=== PATIENT | female | born 1995 | race Caucasian/White ===

== ENCOUNTER 2018-10-17 12:28 | Emergency (ER) | payer OTHER ==
[2018-10-17 12:34] VITALS: BP 127/75
--- NOTE | 2018-10-17 12:59 | ER Document Report ---
ED Foreign Body - General Chief Complaint: Foreign Body in Vagina Stated Complaint: FOREIGN BODY Time Seen by Provider: 10/17/18 12:53 TRAVEL OUTSIDE OF THE [place] IN LAST 30 DAYS: No - HPI Notes: Patient is a 23-year-old female that presents to the emergency department for chief complaint of retained tampon in her vagina. Patient states yesterday she remembers inserting a tampon for a normal menstrual cycle. She states it is a heavy size tampon and was inserted with an applicator. She does not remember removing the tampon and is concerned that it might still be in her. She is denying any vaginal pain or discharge. She states she attempted to feel for the tampon and believes she could feel it but was unable to get hold of it. She denies any fever, chills, dysuria, urinary frequency or concern for . This is a normal menstrual cycle for her. Past Medical History: Negative Past Surgical History: Negative Social History: Denies drugs alcohol and tobacco Family History: Reviewed and noncontributory for presenting illness Allergies: Reviewed, see documented allergy list. REVIEW OF SYSTEMS: CONSTITUTIONAL : No fever No chills No diaphoresis No recent illness EENT: No vision changes No congestion No sore throat CARDIOVASCULAR: No chest pain No palpitations RESPIRATORY: No shortness of breath No cough No difficulty breathing GASTROINTESTINAL: No abdominal pain No nausea No vomiting No diarrhea GENITOURINARY: No dysuria No hematuria No difficulty urinating MUSCULOSKELETAL: No back pain No leg pain No arm pain SKIN: No rashes No lesions LYMPHATIC: No swollen, enlarged glands. NEUROLOGICAL: No lightheadedness No headache No weakness No paresthesias PSYCHIATRIC: No anxiety No depression PHYSICAL EXAMINATION: Vital signs reviewed, nursing noted reviewed. GENERAL: Well-appearing, well-nourished and in no acute distress. HEAD: Atraumatic, normocephalic. EYES: Eyes appear normal, extraocular movements intact, sclera anicteric, conjunctiva are normal. ENT: nares patent, oropharynx clear without exudates. Moist mucous membranes. NECK: Normal range of motion, supple without lymphadenopathy LUNGS: Breath sounds clear to auscultation bilaterally and equal. No wheezes rales or rhonchi. HEART: Regular rate and rhythm without murmurs ABDOMEN: Soft, nontender, normoactive bowel sounds. No rebound, guarding, or rigidity. No masses appreciated. : Normal external genital exam with no lesions. Uterus soft and midline. No adnexal tenderness or fullness. Trace amount of vaginal bleeding. No retained foreign material seen EXTREMITIES: Nontender, good range of motion, no pitting or edema. NEUROLOGICAL: No focal neurological deficits. Moves all extremities spontaneously Motor and sensory grossly intact on exam. PSYCH: Normal mood, normal affect. SKIN: Warm, Dry, normal turgor, no rashes or lesions noted on exposed skin - Related Data Allergies/Adverse Reactions: No Known Allergies Allergy (Verified 10/17/18 12:28) Past Medical History - Social History Smoking Status: Never Smoker Family History: Reviewed & Not Pertinent Physical Exam - Vital signs Vitals: Temp Pulse Resp BP Pulse Ox 99.4 F 105 H 18 127/75 H 100 10/17/18 12:33 10/17/18 12:33 10/17/18 12:33 10/17/18 12:33 10/17/18 12:33 Course - Re-evaluation Re-evalutation: 10/17/18 12:58 Vitals reviewed. Nursing notes reviewed. There is no retained foreign object on pelvic exam. I did a complete sweep around patient's cervix with the speculum as well as digitally and do not appreciate any foreign material. 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 [facility] while she is in [place]. Patient was counseled on symptoms of retained foreign material as well as infection if the tampon was in for a prolonged perio d of time prior to coming out. She is stable at discharge - Vital Signs Vital signs: Temp Pulse Resp BP Pulse Ox 99.4 F 105 H 18 127/75 H 100 10/17/18 12:33 10/17/18 12:33 10/17/18 12:33 10/17/18 12:33 10/17/18 12:33 Discharge - Discharge Clinical Impression: Vaginal foreign object Qualifiers: Encounter type: initial encounter Qualified Code(s): T19.2XXA - Foreign body in vulva and vagina, initial encounter Condition: Stable Disposition: HOME, SELF-CARE Additional Instructions: Please return to the emergency department if you have any worsening, or concern of your symptoms. Please return to the emergency department if you develop chest pain, difficulty breathing, severe abdominal pain, or ongoing vomiting. Please follow-up with your primary care physician in 2-3 days and any other recommended physicians. If prescribed, take all medications as directed. If you have any questions or concerns do not hesitate to return the emergency department for evaluation. Follow-up with your textile slitting machine operator when you return back to [place] for reevaluation as needed. If you develop any vaginal discharge or pelvic pain this may be a sign of infection and you should be reevaluated. Referrals: [facility] [Provider Group] - Follow up as needed
== END 2018-10-17 13:10 | disposition home or self-care (01) ==
LOC: ER 12:28
DX: T19.2XXA Foreign body in vulva and vagina, initial encounter (principal); X58.XXXA Exposure to other specified factors, initial encounter
CPT/HCPCS: 99283